=== PATIENT | female | born 1965 | race Caucasian/White ===

== ENCOUNTER 2023-02-07 12:18 | Emergency (ER) | payer OTHER, SELFPAY ==
[2023-02-07] VITALS (23 sets, daily range): BP systolic 155–183; BP diastolic 83–98; PULSE 45–60; RESP 16–50; TEMP 36.1–36.3; O2SAT 95–100; BMI 26.6
--- NOTE | 2023-02-07 12:55 | ED_ITS ---
HPI - Abdominal Pain General Time Seen by Provider: 12:55 Date Seen: 02/07/23 Chief Complaint: Abdominal Pain Stated Complaint: Abdominal pain Time Seen by Provider: 02/07/23 12:53 Source: patient and RN notes reviewed Mode of arrival: ambulatory Limitations: no limitations History of Present Illness HPI narrative: Patient is a 57-year-old female coming in with significant left upper quadrant abdominal pain that started around 11:00 a.m. this morning. It is there, constant, unrelenting and uncomfortable. She had nausea with the onset of it, had a little episode of vomiting water that she attempted to drink just prior to arrival but otherwise it had no vomiting. No associated fevers. She actually swam a mild this morning, had a few sips of a lot take a earlier today. 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 Did think of her gallbladder possibly. She has a history of kidney stones but that is felt different. She did have a normal bowel movement and it did not alleviate the pain. She is not had pain like this before. No urinary symptoms. MD elicited complaint: abdominal pain Pertinent past history: kidney stones Related Data Patient : No Home Medications Medication Instructions Recorded Confirmed No Known Home Medications 02/07/23 02/07/23 Allergies Allergy/AdvReac Type Severity Reaction Status Date / Time No Known Drug Allergies Allergy Verified 02/07/23 12:47 Review of Systems Status of ROS Reports: 6 or more systems reviewed and unremarkable except as noted in History and below PFSH PFSH Social History Smoking Status: Never smoker Do you use any of these nicotine containing products: None Second hand tobacco smoke exposure: No How often do you have a drink containing alcohol: 2-4 times a month AUDIT-C Alcohol total score: 2 Non-prescribed substance use: denies use service: No Exam Const: Vital Signs, click to edit/add: Vital Signs - 24 hr 02/07/23 12:47 02/07/23 13:25 02/07/23 13:33 Temperature 97.1 F L Pulse Rate Pulse Rate [Pulse Oximeter] 54 L Respiratory Rate 16 50 H Blood Pressure 183/92 H Blood Pressure [Ri ght Upper Arm] 157/88 H Pulse Oximetry 98 100 100 Oxygen Delivery Me thod Room Air Room Air 02/07/23 13:40 02/07/23 13:41 02/07/23 13:45 Temperature Pulse Rate 49 L 60 Pulse Rate [Pulse Oximeter] Respiratory Rate 16 Blood Pressure 170/98 H Blood Pressure [Ri ght Upper Arm] Pulse Oximetry 98 97 Oxygen Delivery Me thod 02/07/23 13:45 02/07/23 14:05 02/07/23 14:06 Temperature Pulse Rate 48 L 48 L 47 L Pulse Rate [Pulse Oximeter] Respiratory Rate Blood Pressure Blood Pressure [Ri ght Upper Arm] Pulse Oximetry 98 99 99 Oxygen Delivery Me thod 02/07/23 14:15 02/07/23 14:30 02/07/23 14:33 Temperature Pulse Rate 49 L 46 L 46 L Pulse Rate [Pulse Oximeter] Respiratory Rate Blood Pressure 181/86 H Blood Pressure [Ri ght Upper Arm] Pulse Oximetry 98 99 98 Oxygen Delivery Me thod 02/07/23 14:45 02/07/23 15:00 02/07/23 15:05 Temperature Pulse Rate 46 L 47 L 48 L Pulse Rate [Pulse Oximeter] Respiratory Rate Blood Pressure Blood Pressure [Ri ght Upper Arm] Pulse Oximetry 99 98 96 Oxygen Delivery Me thod 02/07/23 15:14 Temperature 97 F L Pulse Rate Pulse Rate [Pulse Oximeter] Respiratory Rate 18 Blood Pressure Blood Pressure [Ri ght Upper Arm] Pulse Oximetry Oxygen Delivery Me thod Room Air 57-year-old female is alert and interact deb but looks uncomfortable. Speech is normal, face atraumatic. She does have braces on. Neck is supple, no palpable masses or nodules. Lungs are clear with good air entry, able to speak in complete sentences. CV is regular, no murmur, normal S1 and S2. Abdomen is not distended, I do hear bowel sounds which do not have any concerning character to them. She has definite left upper quadrant tenderness but no underlying mass. No definitive rebound or guarding but is exhibiting certain tenderness in this left side. Documenting provider has reviewed patient's vital signs: yes Course Course Hospital Course: Patient is visibly uncomfortable and tender on exam. Will have her on pulse oximetry, place an IV, use morphine for pain management, Zofran for nausea and start some IV fluids. Will proceed with CT imaging with IV contrast, obtain appropriate labs. This could be atypical presentation of kidney stone disease, stomach issues with ulcer disease, gastritis, possible bowel obstruction. Atypical presentation of gallbladder disease and other intra-abdominal etiologies will be considered as well. We will try to make her comfortable as we attempt to figure out the source of her discomfort. Reevaluation(s) Time of Reevaluation #1: 15:54 Reevaluation #1: Reviewed with patient her normal findings on labs and CT, report of CT provided. Pain likely from colonic cramping from constipation. She is feeling better now, did awaken her when I came into the room. Vital Signs Vital signs: Initial Vital Signs Temperature 97.1 F L 02/07/23 12:47 Temperature Source Temporal Artery Scan 02/07/23 12:47 Pulse Rate 54 L 02/07/23 12:47 Pulse Rhythm Regular 02/07/23 12:47 Pulse Strength 3+ Normal 02/07/23 12:47 Respiratory Rate 16 02/07/23 12:47 Blood Pressure 157/88 H 02/07/23 12:47 Blood Pressure Mean 111 H 02/07/23 12:47 Blood Pressure Position Sitting 02/07/23 12:47 Pulse Oximetry 98 02/07/23 12:47 Oxygen Delivery Method Room Air 02/07/23 12:47 Vital Signs Temperature 97.1 F L 02/07/23 12:47 Pulse Rate 54 L 02/07/23 12:47 Respiratory Rate 16 02/07/23 12:47 Blood Pressure 157/88 H 02/07/23 12:47 Pulse Oximetry 98 02/07/23 12:47 Oxygen Delivery Method Room Air 02/07/23 12:47 Temperature 97 F L 02/07/23 15:14 Pulse Rate 48 L 02/07/23 15:05 Respiratory Rate 18 02/07/23 15:14 Blood Pressure 181/86 H 02/07/23 14:33 Pulse Oximetry 96 02/07/23 15:05 Oxygen Delivery Method Room Air 02/07/23 15:14 MDM - Abdominal Pain Differential Diagnosis Differential diagnosis: Likely abdominal pain, calculus of kidney, constipation, diverticulitis, gastroenteritis, pancreatitis and small bowel obstruction Lab Data Attestation: I reviewed the patient's lab results. Labs: Lab Results 02/07/23 02/07/23 Range/Units 13:15 14:13 WBC 4.67 (4.50-11.00) K/uL RBC 4.98 (4.00-5.20) m/uL Hgb 15.2 (12.0-16.0) gm/dL Hct 45.6 (33.0-51.0) % MCV 92 (80-100) fL MCH 31 (26-34) pg MCHC 33 (32-36) gm/dL RDW Coeff of Eddie 12.1 (11.5-15.5) % Plt Count 250 (140-440) K/uL Neut % (Auto) 53.0 (42.0-72.0) % Lymph % (Auto) 37.3 (20-44) % [place] % (Auto) 7.7 (0.0-11.0) % Eos % (Auto) 1.1 (0.0-7.0) % Baso % (Auto) 0.9 (0.0-3.0) % Neut # (Auto) 2.48 (1.7-7.0) K/uL Lymph # (Auto) 1.74 (0.90-2.90) K/uL [place] # (Auto) 0.40 (0.00-0.90) K/UL Eos # (Auto) 0.05 (0.00-0.50) K/uL Baso # (Auto) 0.04 (0.00-0.30) K/uL Abs Immat Gran (auto) 0.00 (0.00-0.30) K/uL Imm/Tot Granulo (auto) 0.0 % Sodium 140 (135-149) mmol/L Potassium 3.6 (3.6-5.1) mmol/L Chloride 105 (96-114) mmol/L Carbon Dioxide 29 (20-32) mmol/L Anion Gap 6 L (7-15) mEq/L BUN 13 (7-30) mg/dL Creatinine 0.7 (0.5-1.5) mg/dL Estimated Creat Clear 77.87 Estimated GFR 100 ml/min Glucose 102 (60-115) mg/dL Lactate 0.8 (0.5-1.9) mmol/L Total Bilirubin 0.7 (0.1-1.5) mg/dL AST 36 H (12-35) U/L ALT 22 (4-35) U/L Alkaline Phosphatase 59 (40-150) U/L C-Reactive Protein < 0.5 L (0.5-1.0) mg/dL Total Protein 7.8 (6.0-8.3) g/dL Albumin 4.7 (3.3-5.0) g/dL Lipase 75 (23-300) U/L Urine Color Yellow (Yellow) Urine Appearance Clear (Clear) Urine pH 7.0 (5.0-8.5) Ur Specific [place] 1.015 (1.000-1.030) Urine Protein Negative (Negative) Urine Glucose (UA) Negative (Negative) Urine Ketones Negative (Negative) Urine Blood Negative (Negative) Urine Nitrite Negative (Negative) Urine Bilirubin Negative (Negative) Urine Urobilinogen 0.2 (0.2-1.0) Ur Leukocyte Esterase Negative (Negative) Urine RBC 0-2 (0-2) Urine WBC 0-2 (0-5) Ur Squamous Epith Cells None (None-Few) Urine Bacteria None (None) Imaging Data CT scan - abdomen: Attestation: I have reviewed the pertinent imaging results. Radiologist's impression: Patient: BERTHA HESS Facility:?[facility] Patient ID:?[id number] Site Patient ID:?[id number]. Site :?[id number] Study:?CT Abdomen/Pelvis 79CC ISOVUE 370-02/07/2023 2:10:56 PM Ordering Physician:Checo Tran Final Report: INDICATION: Left upper abdominal pain. TECHNIQUE: CT abdomen and pelvis acquired with 79 cc Isovue 370 IV contrast. COMPARISON: None. FINDINGS: Lower chest: Scattered atelectasis. Tiny hiatal hernia. Liver: Unremarkable. Normal in size and attenuation. No suspicious masses. Gallbladder and bile ducts: Unremarkable. No stones or inflammation. No biliary dilatation. Pancreas: Unremarkable. No mass or inflammation. Spleen: Unremarkable. Normal in size. No masses. Adrenal glands: Unremarkable. No nodules. Kidneys: Unremarkable. No suspicious masses, stones, or hydronephrosis. GI tract: Gastric bypass. Mild colonic stool burden. Colonic diverticulosis. Normal in caliber. No sign of mass or inflammation. Normal appendix. Vasculature: Abdominal aorta is normal in caliber. Mesenteric arteries are patent. Lymph nodes: No lymphadenopathy. Peritoneum/Abdominal Wall: Unremarkable. No sign of mass or infiltration. No free air or significant free fluid. Pelvis: Calcified fibroid. Mildly distended bladder. Bones: Unremarkable for age. IMPRESSION: Gastric bypass. No acute intra-abdominal/pelvic abnormality. Mild colonic stool burden. Colonic diverticulosis without diverticulitis. Please note that all CT scans at this facility use dose modulation, iterative reconstruction, and/or weight-based dosing when appropriate to reduce radiation dose to as low as reasonably achievable. Dictated by Hunter Lane MD @ 02/07/2023 3:19:05 PM (Electronic Signature) Critical Care Time Critical Care Time Critical Care Time: No Discharge Plan Discharge Clinical Impression: Abdominal pain, Constipation Patient Disposition: Home, Self-Care Condition: Stable Instructions: Constipation (ED), High Fiber Diet (ED) Additional Instructions: It is very important for you to stay well hydrated; you need adequate fluid intake as well as dietary fiber to help promote healthy bowels. Try Miralax 17gm daily to help clear bowels. If you develop increasing abdominal pain, have associated vomiting or fever with it, need to seek re-evaluation. Activity Level: Activity as Tolerated Discharge Diet: High Fiber Prescriptions: No Action No Known Home Medications Follow Up/Referrals: Provider,Not a Local [Primary Care Provider] - Stand Alone Forms: [employer] Info Instructions
--- NOTE | 2023-02-07 13:02 | CRLHL7_ITS ---
For Patients: As a result of the Century Cures Act, medical imaging exams and procedure reports are released immediately into your electronic medical record. You may view this report before your referring provider. If you have questions, please contact your health care provider. INDICATION: Left upper abdominal pain. TECHNIQUE: CT abdomen and pelvis acquired with 79 cc Isovue 370 IV contrast. COMPARISON: None. FINDINGS: Lower chest: Scattered atelectasis. Tiny hiatal hernia. Liver: Unremarkable. Normal in size and attenuation. No suspicious masses. Gallbladder and bile ducts: Unremarkable. No stones or inflammation. No biliary dilatation. Pancreas: Unremarkable. No mass or inflammation. Spleen: Unremarkable. Normal in size. No masses. Adrenal glands: Unremarkable. No nodules. Kidneys: Unremarkable. No suspicious masses, stones, or hydronephrosis. GI tract: Gastric bypass. Mild colonic stool burden. Colonic diverticulosis. Normal in caliber. No sign of mass or inflammation. Normal appendix. Vasculature: Abdominal aorta is normal in caliber. Mesenteric arteries are patent. Lymph nodes: No lymphadenopathy. Peritoneum/Abdominal Wall: Unremarkable. No sign of mass or infiltration. No free air or significant free fluid. Pelvis: Calcified fibroid. Mildly distended bladder. Bones: Unremarkable for age. IMPRESSION: Gastric bypass. No acute intra-abdominal/pelvic abnormality. Mild colonic stool burden. Colonic diverticulosis without diverticulitis. Please note that all CT scans at this facility use dose modulation, iterative reconstruction, and/or weight-based dosing when appropriate to reduce radiation dose to as low as reasonably achievable. Dictated by Hunter Lane MD @ 02/07/2023 3:19:05 PM (Electronically Signed)
[2023-02-07] MEDS: 0.9 % SODIUM CHLORIDE 1000 ml 1,000 ML 500 ML IV (13:18)
[2023-02-07 13:23] LABS: Lactate* 0.8 mmol/L (0.5-1.9)
[2023-02-07 13:24] LABS: Basophils Absolute Auto 0.04 K/uL (0.00-0.30); Basophils Percent Auto 0.9 % (0.0-3.0); Eosinophils Absolute Auto 0.05 K/uL (0.00-0.50); Eosinophils Percent Auto 1.1 % (0.0-7.0); Hematocrit 45.6 % (33.0-51.0); Hemoglobin* 15.2 gm/dL (12.0-16.0); Lymphocytes Absolute Auto 1.74 K/uL (0.90-2.90); Lymphocytes Percent Auto 37.3 % (20-44); Mean Corpuscular HGB Conc 33 gm/dL (32-36); Mean Corpuscular Hemoglobin 31 pg (26-34); Mean Corpuscular Volume 92 fL (80-100); Monocytes Percent Auto 7.7 % (0.0-11.0); Neutrophils Absolute Auto 2.48 K/uL (1.7-7.0); Platelet Count* 250 K/uL (140-440); RDW Coefficient of Variation % 12.1 % (11.5-15.5); Red Blood Count 4.98 m/uL (4.00-5.20); White Blood Count* 4.67 K/uL (4.50-11.00)
[2023-02-07] MEDS: ONDANSETRON 2 MG/ML inj 4 MG IVP (13:24)
[2023-02-07] MEDS: MORPHINE 4 MG/ML INJ IVP (13:24)
[2023-02-07 13:29] LABS: Slide Review Reflex No
[2023-02-07 13:48] LABS: Albumin* 4.7 g/dL (3.3-5.0); Chloride* 105 mmol/L (96-114); Sodium* 140 mmol/L (135-149)
[2023-02-07 13:49] LABS: Potassium* 3.6 mmol/L (3.6-5.1)
[2023-02-07 13:51] LABS: Alanine Aminotransferase* 22 U/L (4-35); Alkaline Phosphatase* 59 U/L (40-150); Anion Gap 6 mEq/L (7-15); Aspartate Amino Transferase* 36 U/L (12-35); Bilirubin Total* 0.7 mg/dL (0.1-1.5); Blood Urea Nitrogen* 13 mg/dL (7-30); Carbon Dioxide* 29 mmol/L (20-32); Creatinine* 0.7 mg/dL (0.5-1.5); Est. Creatinine Clearance* 77.87; Estimated Glomerular Filt Rate 100 ml/min; Lipase* 75 U/L (23-300); Total Protein* 7.8 g/dL (6.0-8.3)
[2023-02-07 13:52] LABS: Glucose* 102 mg/dL (60-115)
[2023-02-07 13:58] LABS: C Reactive Protein* < 0.5 mg/dL (0.5-1.0)
[2023-02-07 14:18] LABS: Appearance Urine Clear (Clear); Bilirubin Urine Negative (Negative); Blood Urine Negative (Negative); Color Urine Yellow (Yellow); Glucose Urine Negative (Negative); Ketones Urine Negative (Negative); Leukocyte Esterase Urine Negative (Negative); Nitrite Urine Negative (Negative); Protein Urine Negative (Negative); Specific Gravity Urine 1.015 (1.000-1.030); Urobilinogen Urine 0.2 (0.2-1.0)
[2023-02-07 14:29] LABS: RBC Urine 0-2 (0-2); WBC Urine 0-2 (0-5)
[2023-02-09 19:36] LABS: Calcium* 9.7 mg/dL (8.4-10.6)
== END 2023-02-07 16:18 | disposition home or self-care (01) ==
PROVIDERS: Emergency Provider Family Medicine
DX: K59.00 Constipation, unspecified (principal); R10.9 Unspecified abdominal pain
CPT/HCPCS: 36415; 74177; 80053; 81001; 83605; 83690; 85025; 86140; 94761; 96374; 96375; 99284; J2270; J2405; J7030; Q9967